=== PATIENT | female | born 1990 | race Caucasian/White ===

== ENCOUNTER 2025-01-17 18:23 | Emergency (ER) | payer OTHER ==
[2025-01-17] MEDS ORDERED: ONDANSETRON 4 MG/2 ML VIAL ONE (19:13)
[2025-01-17] MEDS ORDERED: KETOROLAC 30 MG/ML INJ ONE (19:14)
[2025-01-17] MEDS ORDERED: NA CHLORIDE 0.9% 1,000 ML ONE (19:14)
[2025-01-17 19:23] LABS: Absolute Lymphocytes (CBC) 2.8 K/uL (0.7-4.9); Hematocrit 38.4 % (36.0-45.0); Hemoglobin 13.0 g/dL (12.0-15.0); MCH 27.7 pg (27.0-35.0); MCHC 33.8 g/dL (32.0-36.0); MCV 82.0 fL (80-100); MPV 7.7 fL (7.6-11.3); Nucleated RBC Absolute Count 0.0 (0-0); Nucleated Red Blood Cells % 0.1 % (0-0); RBC Red Blood Cell Count 4.68 M/uL (3.86-4.86); White Blood Count 8.90 thou/uL (4.3-10.9)
[2025-01-17 19:36] LABS: Urine Microscopic Reflex YN NO UMIC
[2025-01-17 19:42] LABS: ALT/SGPT 39.0 U/L (13-56); AST/SGOT 21.0 U/L (15-37); Albumin 3.4 g/dL (3.4-5.0); Albumin/Globulin Ratio 0.8 (1.1-1.8); Alkaline Phosphatase 112.0 U/L (45-117); Anion Gap 9.6 mEq/L (5.0-15.0); BUN Blood Urea Nitrogen 13.0 mg/dL (7-18); Globulin 4.4 g/dL (2.3-3.5); Glucose Level 108.0 mg/dL (74-106); Lipase 35.0 U/L (13-75); Potassium 3.6 mEq/L (3.5-5.1)
--- NOTE | 2025-01-17 20:39 | RAD REPORT ---
EXAMINATION: CT ABDOMEN AND PELVIS WITH CONTRAST CLINICAL INDICATION: FLANK PAIN TECHNIQUE: CT abdomen and pelvis was performed, after the administration of IV contrast, as per [facility] protocol. Axial, sagittal and coronal reconstructions were obtained. One or more of the following dose reduction techniques were used: Automated exposure control, adjustment of the mA and k V according to patient size, and iterative reconstruction. Unless otherwise specified, incidental findings do not require dedicated imaging follow-up. COMPARISON: 12/04/2024 FINDINGS: LOWER CHEST: The visualized lung bases are clear. LIVER: Mild fatty liver is present. No focal lesion or biliary dilatation is seen. Grossly unremark able gallbladder. SPLEEN: Normal size. No focal lesion. PANCREAS: No mass, ductal dilation, or alfonzo-pancreatic fluid. ADRENALS: Normal; no mass. KIDNEYS: Normal size and contour. No hydronephrosis. Multiple calculi are present in the calyces bila terally, unchanged from prior study. GASTROINTESTINAL TRACT: No evidence of free air, significant intra-abdominal free fluid, bowel obstru ction or abscess. APPENDIX: Normal appendix. LYMPH NODES: No lymphadenopathy. MUSCULOSKELETAL: No acute or suspicious osseous abnormality. ADDITIONAL FINDINGS: Multicystic large right adnexal lesion, unchanged since prior study. Differentia l considerations and recommendations as per prior report. IMPRESSION: No new finding is evident since comparison study dated 12/04/2024. 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 Differential and recommend ations as per prior report. Multiple bilateral calyceal renal calculi without hydronephrosis.
--- NOTE | 2025-01-17 20:45 | EDPHYS ---
Physician Documentation [facility] Name: Tommy Woody Age: 34 yrs Sex: Female : 1990 Arrival Date: 01/17/2025 Time: 18:23 Bed 5 Private MD: ED Physician Irving Merlos HPI: 01/17 19:34 This 34 yrs old Female presents to ER via Ambulatory with complaints of Pelvic Pain, sb4 Kidney pain. 19:34 Patient reports right lower quadrant and right flank pain for a few days now. States sb4 that about a month and a half ago, she was seen here and diagnosed with a large mass in her abdomen that was pushing on her right ureter. She was post to follow-up with urology but has not because she did not have insurance and her pain improved. However now her pain has come back. States that she is able to urinate, but does not feel that she empties her bladder completely. 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 - Infectious Disease History:: Denies. - Social history:: Smoking status: Patient denies any tobacco usage or history of. ROS: 19:34 Constitutional: Negative for fever, chills, and weight loss, sb4 19:36 : Positive for urinary symptoms, flank pain, sb4 19:36 All other systems are negative, Exam: 19:36 Head/Face: Normocephalic, atraumatic. Eyes: Extra-ocular motions intact. Periorbital sb4 areas with no swelling, redness, or edema. ENT: Mucous membranes moist. Cardiovascular: Regular rate and rhythm with a normal S1 and S2. Respiratory: No increased work of breathing, no retractions or nasal flaring. Abdomen/GI: Soft, non-tender, no distension. Back: No spinal tenderness. No costovertebral tenderness. Full range of motion. Skin: Warm, dry with normal turgor. Normal color with no rashes, no lesions, and no evidence of cellulitis. 19:36 Constitutional: The patient appears alert, awake, uncomfortable, Vital Signs: 18:33 BP 191 / 116; Pulse 98; Resp 18; Temp 98.4; Pulse Ox 98% ; Weight 95.25 kg; Height 5 me1 ft. 1 in. ; Pain 7/10; 20:15 BP 175 / 109; Pulse 91; Resp 18; Pulse Ox 99% on R/A; ha1 21:30 BP 165 / 103; Pulse 91; Resp 18 S; Pulse Ox 99% on R/A; ha1 22:09 BP 149 / 97; Pulse 90; Resp 18 S; Pulse Ox 99% on R/A; ha1 18:33 Body Mass Index 39.68 (95.25 kg, 154.94 cm) me1 18:33 Pain Scale: Adult me1 MDM: 18:36 Medical Screening Exam initiated sb4 21:14 Data reviewed: vital signs, nurses notes, lab test result(s), radiologic studies. sb4 Counseling: I had a detailed discussion with the patient and/or guardian regarding the historical points, exam findings, and any diagnostic results supporting the discharge/admit diagnosis, the presence of at least one elevated blood pressure reading (>120/80) during this emergency department visit, lab results, radiology results, the need to transfer to another facility, [facility] does not immediately have the required specialist. 01/18 14:00 ED course: Patient prefers to be transferred anywhere but [facility] as last time they sb4 refused her transfer and she was never able to follow-up outpatient. I first attempted [facility] but they stated they did not have urogyn and was able to receive acceptance from gynecologic faculty at [facility]. 01/17 18:37 Order name: CBC with Diff; Complete Time: 19:26 sb4 01/17 18:37 Order name: CMP; Complete Time: 19:50 sb4 01/17 18:37 Order name: Lipase; Complete Time: 19:50 sb4 01/17 18:37 Order name: UA Rfx John Cult if indicated; Complete Time: 19:36 sb4 01/17 19:22 Order name: Test, Serum; Complete Time: 19:58 sb4 01/17 18:37 Order name: CT Abd/Pelvis - IV Contrast Only; Complete Time: 20:39 sb4 01/17 18:37 Order name: IV Saline Lock; Complete Time: 19:24 sb4 01/17 18:37 Order name: Labs collected and sent; Complete Time: 19:24 sb4 Administered Medications: 01/17 19:26 Not Given (Other Intervention Used): morphineor iv 4 mg IVP once over 4 mins sb4 19:33 Drug: Ondansetron IVP 4 mg IVP once; over 2 minutes Route: IVP; Site: left antecubital; ha1 19:33 Drug: NS 0.9% IV 1000 ml IV at 1 bolus Per protocol; to be given as a bolus over 60 ha1 minutes Route: IV; Rate: 1 bolus; Site: left antecubital; 19:54 Drug: Ketorolac IVP 15 mg IVP once Route: IVP; Site: left antecubital; ha1 Disposition: 01/18 06:59 Co-signature as Attending Physician, Irving Merlos MD I reviewed the patient's care rn provided by the Advanced Practice Provider and agree with the diagnosis and treatment plan. Disposition Summary: 01/17/25 20:45 Transfer Ordered Notes: Reason: Higher level of care sb4 Condition: Fair sb4 Problem: new sb4 Symptoms: are unchanged sb4 Transfer Location: [facility]System(01/17/25 21:25) sb4 Accepting Physician: urogyn(01/17/25 23:02) vc1 Diagnosis - Multicystic right adnexal mass with compression of distal ureter sb4 Forms: - Medication Reconciliation Form sb4 - SBAR form sb4 Signatures: Dispatcher [employer] EDIrving Juan MD MD rn Calcote, Vanessa RN RN vc1 Kelin Shannon RN RN ha1 Tabitha Cali PA-C PAShavon sb4 Laverne Diaz RN RN me1 Corrections: (The following items were deleted from the chart) 01/17 19:22 19:22 TEST, SERUM+SC.LAB.BRZ ordered. ED[facility] EDMS 19:28 18:37 Test, Urine+UC.LAB.BRZ ordered. ED[facility] EDMS 21:25 20:45 urogyn sb4 sb4 21:25 20:45 [facility] sb4 sb4 23:02 21:25 urogyn sb4 vc1
--- NOTE | 2025-01-17 20:45 | ER ---
Nurse's Notes [facility] Name: Tommy Woody Age: 34 yrs Sex: Female : 1990 Arrival Date: 01/17/2025 Time: 18:23 Bed 5 Private MD: Diagnosis: Multicystic right adnexal mass with compression of distal ureter Presentation: 01/17 18:33 Chief complaint: Patient states: Seen here December 04 and dx with a mass that is me1 pressing on the ureter. Patient didn't have insurance and then when she did get it the pain stopped. Pain to right flank started again 3 days ago with pain to RLQ also. Pain level 7/10. Coronavirus screen: Vaccine status: Patient reports being unvaccinated. Ebola Screen: No symptoms or risks identified at this time. Initial Sepsis Screen: Does the patient meet any 2 criteria? HR > 90 bpm. Does the patient have a suspected source of infection? No. Patient's initial sepsis screen is negative. Risk Assessment: Do you want to hurt yourself or someone else? Patient reports no desire to harm self or others. Onset of symptoms is unknown. 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 - Infectious Disease History:: Denies. - Social history:: Smoking status: Patient denies any tobacco usage or history of. Screenin:[address] [facility] ED Fall Risk Assessment (Adult) History of falling in the last 3 months, ha1 including since admission No falls in past 3 months (0 pts) Confusion or Disorientation No (0 pts) Intoxicated or Sedated No (0 pts) Impaired Gait No (0 pts) Mobility Assist Device Used No (0 pt) Altered Elimination No (0 pt) Score/Fall Risk Level 0 - 2 = Low Risk Oriented to surroundings, Maintained a safe environment, Educated pt \T\ family on fall prevention, incl call for assistance when getting out of bed, Hourly rounding (assess needs \T\ fall precautionary measures) done. Abuse screen: Denies threats or abuse. Denies injuries from another. Nutritional screening: No deficits noted. Tuberculosis screening: No symptoms or risk factors identified. Assessment: 19:34 General: Appears comfortable, Behavior is calm, cooperative. Pain: Complains of pain in ha1 right low back Pain radiates to pelvis Pain currently is 8 out of 10 on a pain scale. Quality of pain is described as throbbing. Neuro: Level of Consciousness is awake, alert, obeys commands, Oriented to person, place, time, situation. Cardiovascular: Capillary refill < 3 seconds Patient's skin is warm and dry. Respiratory: Airway is patent Respiratory effort is even, unlabored, Respiratory pattern is regular, symmetrical. GI: Abdomen is round non-distended, Reports nausea. : Urine is cloudy. Derm: Skin is pink, warm \T\ dry. Musculoskeletal: Circulation, motion, and sensation intact. Range of motion:. 20:15 Reassessment: Patient and/or family updated on plan of care and expected duration. Pain ha1 level reassessed. Patient is alert, oriented x 3, equal unlabored respirations, skin warm/dry/pink. Patient states feeling better. Patient states symptoms have improved. 21:20 Reassessment: Patient and/or family updated on plan of care and expected duration. Pain ha1 level reassessed. Patient is alert, oriented x 3, equal unlabored respirations, skin warm/dry/pink. 22:08 Reassessment: REPORT GIVEN TO RECEIVING NURSE RACHEL HOLLEY. [facility] Vital Signs: 18:33 BP 191 / 116; Pulse 98; Resp 18; Temp 98.4; Pulse Ox 98% ; Weight 95.25 kg; Height 5 me1 ft. 1 in. ; Pain 7/10; 20:15 BP 175 / 109; Pulse 91; Resp 18; Pulse Ox 99% on R/A; ha1 21:30 BP 165 / 103; Pulse 91; Resp 18 S; Pulse Ox 99% on R/A; ha1 22:09 BP 149 / 97; Pulse 90; Resp 18 S; Pulse Ox 99% on R/A; ha1 18:33 Body Mass Index 39.68 (95.25 kg, 154.94 cm) [facility] [place] Pain Scale: Adult me1 ED Course: 18:29 Patient arrived in ED. im 18:31 Tabitha Cali [facility]. sb4 18:31 Irving Merlos MD is Attending Physician. sb4 18:37 Triage completed. me1 18:38 Arm band placed on Patient placed in an exam room. me1 19:07 Shaista Bright, RN is Primary Nurse. kd3 19:24 CBC with Diff Sent. ha1 19:24 CMP Sent. ha1 19:24 Lipase Sent. ha1 19:34 Inserted saline lock: 20 gauge in left antecubital area, using aseptic technique. Blood ha1 collected. Flushed with 10 mL NS. 20:16 CT Abd/Pelvis - IV Contrast Only In Process Unspecified. EDMS 22:39 initiated transfer with [facility] declined due to not having service. Diet:. kmf 23:01 No provider procedures requiring assistance completed. Patient transferred, IV remains vc1 in place. 01/18 02:51 initiated transfer with [facility], pt was accepted as a ER TO ER transfer. Lyric Seymour [facility] accepting admin \T\ 2120. Accepting Dr. Akilah Yañez \T\2120. Administered Medications: 01/17 19:26 Not Given (Other Intervention Used): morphineor iv 4 mg IVP once over 4 mins sb4 19:33 Drug: Ondansetron IVP 4 mg IVP once; over 2 minutes Route: IVP; Site: left antecubital; ha1 19:33 Drug: NS 0.9% IV 1000 ml IV at 1 bolus Per protocol; to be given as a bolus over 60 ha1 minutes Route: IV; Rate: 1 bolus; Site: left antecubital; 19:54 Drug: Ketorolac IVP 15 mg IVP once Route: IVP; Site: left antecubital; ha1 Medication: 23:02 VIS not applicable for this client. vc1 Outcome: 20:45 ER care complete, transfer ordered by . sb4 23:02 Transferred by ground EMS to [facility], to other acute care vc1 facility: [facility]. Transfer form completed. 23:02 Condition: stable 23:02 Patient left the ED. vc1 Signatures: Dispatcher [employer] EDWI Shaista Bright RN RN kd3 Shelby Baker RN RN vc1 Kelin Shannon, RN RN ha1 Tabitha Cali, PAJoshuaC PA-C sb4 Rosaline Hernandez Michelle, RN RN me1 Lula Adams [facility]
[2025-01-18 07:59] VITALS: TEMP 98.4
[2025-01-18 08:01] VITALS: O2SAT 99
[2025-01-18 08:04] VITALS: BP 149/97
== END 2025-01-17 23:02 | disposition short-term general hospital (02) ==
LOC: ER 18:23
DX: N83.292 Other ovarian cyst, left side (principal); N13.5 Crossing vessel and stricture of ureter without hydronephrosis; I10 Essential (primary) hypertension; Z87.440 Personal history of urinary (tract) infections
CPT/HCPCS: 85025; 36415; 84703; 81003; 83690; 80053; 74177; 96375; 96374; 99285; Q9967; J1885; J2405; J7030